=== PATIENT | male | born 1940 | race Caucasian/White ===

== ENCOUNTER → 2020-11-16 16:03 | Outpatient (CLI) | payer MEDICARE, SELFPAY ==
[2020-11-16] MEDS: COVID-19 VACC #1, MRNA(MOD) 100 MCG/0.5 ML VIAL IM (16:12)
== END ==
PROVIDERS: Visit Provider Internal Medicine
DX: Z23 Encounter for immunization (principal)
CPT/HCPCS: 0011A; 91301

== ENCOUNTER → 2020-12-14 15:49 | Outpatient (CLI) | payer MEDICARE, SELFPAY ==
[2020-12-14] MEDS: COVID-19 VACC #2, MRNA(MOD) 100 MCG/0.5 ML VIAL IM (15:53)
== END ==
PROVIDERS: Visit Provider Internal Medicine
DX: Z23 Encounter for immunization (principal)
CPT/HCPCS: 0012A; 91301

== ENCOUNTER → 2022-10-11 12:40 | Outpatient (CLI) | payer OTHER, SELFPAY ==
--- NOTE | 2022-10-11 | DI.CT.S_ITS ---
PROCEDURE: CT ANGIO NECK INDICATIONS: aneurysm of carotid artery TECHNIQUE: After the administration of intravenous contrast, 1.5 mm axial sections acquired from the aortic arch to the [place]. Maximum intensity projection (MIP) reformats were then performed. COMPARISON: None. FINDINGS: Image quality: Excellent. Carotid system: In the distal cervical right ICA, there is a fusiform aneurysm extending over a 2.9 cm segment measuring up to 1.2 cm in diameter. There is associated short-segment intimal flap or vascular web noted on image 4/37, consistent with probable carotid dissection. No stenosis The great vessels demonstrate a conventional anatomy as they arise from the aortic arch. The origins of the common carotid arteries appear patent. The common carotid arteries demonstrate normal calibers and courses. The bifurcation regions appear normal bilaterally without stenosis. Posterior circulation: The origins of the vertebral arteries appear patent. The more superior portions of the vertebral arteries demonstrate normal course and caliber. They join to form a normal appearing basilar artery. Left vertebral artery dominance Soft tissues: Visualized neck soft tissues demonstrate no suspicious abnormalities. Thyroid gland unremarkable . Calcified granuloma noted in the right upper lobe posteriorly Bones: No suspicious bony lesions. Visualized cervical spine appears normally aligned. 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 Any quantitative stenosis measurements were performed using the NASCET criteria. Approved by: Boubacar Castillo M.D. on 10/11/2022 at 14:59
== END ==
PROVIDERS: PCP Internal Medicine; Referring Provider Internal Medicine; Visit Provider Internal Medicine
DX: I72.0 Aneurysm of carotid artery (principal)
CPT/HCPCS: 70498; Q9967

== ENCOUNTER → 2023-11-08 09:00 | Outpatient (CLI) | payer OTHER, SELFPAY ==
[2023-11-08 09:44] LABS: COVID-19 CEPHEID 4-PLEX PCR Negative (Negative); Influenza A - CEPHEID Flu A POSITIVE (NEGATIVE); Influenza B - CEPHEID Flu B NEGATIVE (NEGATIVE); Respiratory Syncytial Virus Negative (Negative)
== END ==
PROVIDERS: PCP Internal Medicine; Visit Provider Physician Assistant Medical
DX: R05.9 Cough, unspecified (principal)
CPT/HCPCS: 0241U